=== PATIENT | male | born 1975 | race Caucasian/White ===

== ENCOUNTER 2017-08-04 18:05 | Emergency (ER) | payer MEDICAID ==
[2017-08-04 18:19] VITALS: BP 126/69
[2017-08-04] MEDS ORDERED: Amoxicillin/Clavulanate K 875-125 MG Tab PO ONE (18:51)
[2017-08-04] MEDS ORDERED: traMADol 50 MG Tab PO ONE (18:51)
--- NOTE | 2017-08-04 19:04 | EDM.PDOC ---
ED HPI GENERAL MEDICAL PROBLEM - General Chief Complaint: ENT Problem Stated Complaint: RIGHT EAR INFECTION>?? Time Seen by Provider: 08/04/17 18:38 Source of Information: Reports: Patient History Limitations: Reports: No Limitations - History of Present Illness INITIAL COMMENTS - FREE TEXT/NARRATIVE: Patient presents with right ear pain and fullness as well as muffled hearing. This has been going on for the last 4 days. He has used Tylenol, Ibuprofen and Aleve which haven't helped too much. He has had ear infections in the past and says this feels a little more superficial and is tender just below his ear too. 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 Right Ear Pain Score (Numeric/FACES): 5 - Related Data Allergies Allergy/AdvReac Type Severity Reaction Status Date / Time Sulfa (Sulfonamide Allergy rash, Verified 08/04/17 18:19 Antibiotics) blisters Home Meds: Home Meds Ibuprofen 400 mg PO ASDIRECTED 11/28/16 [History] Past Medical History Musculoskeletal History: Reports: Arthritis, Back Pain, Chronic, Other (See Below) Other Musculoskeletal History: Degenerative arthritis to spine and pelvis Neurological History: Reports: Migraines Endocrine/Metabolic History: Reports: Obesity/BMI 30+ - Infectious Disease History Infectious Disease History: Reports: Chicken Pox, MRSA - Past Surgical History Musculoskeletal Surgical History: Reports: Other (See Below) Other Musculoskeletal Surgeries/Procedures:: Knee cap Left, Right leg infection with dedridment, Neck fusion 2009. Social & Family History - Caffeine Use Caffeine Use: Reports: Coffee ED ROS ENT - Review of Systems Review Of Systems: See Below Constitutional: Denies: Fever, Chills HEENT: Reports: Ear Pain. Denies: Ear Discharge, Throat Pain, Throat Swelling Respiratory: Denies: Shortness of Breath, Cough Cardiovascular: Reports: No Symptoms Endocrine: Reports: No Symptoms GI/Abdominal: Reports: No Symptoms : Reports: No Symptoms Musculoskeletal: Reports: No Symptoms Skin: Reports: No Symptoms. Denies: Cyanosis, Jaundice, Mottled, Pallor, Diaphoresis Neurological: Reports: No Symptoms. Denies: Confusion, Seizure, Syncope, Weakness Psychiatric: Reports: No Symptoms. Denies: Agitation, Anxiety, Confusion ED EXAM, ENT - Physical Exam Exam: See Below Exam Limited By: No Limitations General Appearance: Alert, WD/WN, No Apparent Distress Eye Exam: Bilateral Eye: EOMI, Normal Inspection, PERRL Ears: Auricular Tenderness (just the tragus), Canal Swelling, TM Bulging, TM Dullness, TM Fluid. No: Auricular Ecchymosis, Mastoid Swelling, Mastoid Tenderness, Canal Blood, Canal Discharge, Canal Foreign Body, Canal Material, TM Erythema, TM Blood, TM Perforation, TM Obscured by Cerumen, Cerumen Impaction Nose: Normal Inspection, No Blood Mouth/Throat: Normal Inspection, Normal Gums, Normal Lips, Normal Oropharynx, Normal Teeth Head: Atraumatic, Normocephalic Neck: Normal Inspection, Supple, Non-Tender, Full Range of Motion, Tender Midline Respiratory/Chest: No Respiratory Distress, Lungs Clear, Normal Breath Sounds, No Accessory Muscle Use Cardiovascular: Regular Rate, Rhythm, No Murmur, No Rub Extremities: Normal Inspection, Normal Range of Motion Neurological: Alert, Oriented, Normal Cognition, Normal Gait, No Motor/Sensory Deficits Psychiatric: Normal Affect, Normal Mood Skin: Warm, Dry, Intact, Normal Color, No Rash Course - Vital Signs Last Recorded V/S: Last Vital Signs Temp 97.1 F 08/04/17 18:16 Pulse 92 08/04/17 18:16 Resp 16 08/04/17 18:16 BP 126/69 08/04/17 18:16 Pulse Ox 96 08/04/17 18:16 - Orders/Labs/Meds Orders: Active Orders 24 hr Category Date Time Status Amoxicillin/Clavulanate K [Augmentin 875 MG/125 MG] Med 08/04/17 18:51 Once 1 tab PO ONETIME ONE traMADol [Ultram] Med 08/04/17 18:51 Once 100 mg PO ONETIME ONE Departure - Departure Time of Disposition: 18:53 Disposition: Home, Self-Care 01 Condition: Good Clinical Impression: AOM (acute otitis media) Qualifiers: Otitis media type: suppurative Laterality: right Recurrence: not specified as recurrent Spontaneous tympanic membrane rupture: without spontaneous rupture Qualified Code(s): H66.001 - Acute suppurative otitis media without spontaneous rupture of ear drum, right ear - Discharge Information Referrals: Hetal Rogel PA-C [Primary Care Provider] - Additional Instructions: 1. Drink 8 cups of water daily. 2. Take the medications as directed. 3. Take NSAIDS (either Ibuprofen or Aleve, but not both) primarily for pain then the Tramadol if needed. 4. Followup with your PCP in 3-5 days for recheck if not improving. - My Orders Last 24 Hours: My Active Orders 08/04/17 18:51 Amoxicillin/Clavulanate K [Augmentin 875 MG/125 MG] 1 tab PO ONETIME ONE traMADol [Ultram] 100 mg PO ONETIME ONE - Assessment/Plan Last 24 Hours: My Active Orders 08/04/17 18:51 Amoxicillin/Clavulanate K [Augmentin 875 MG/125 MG] 1 tab PO ONETIME ONE traMADol [Ultram] 100 mg PO ONETIME ONE
== END 2017-08-04 19:05 | disposition home or self-care (01) ==
LOC: KA.ED 18:05
DX: H66.001 Acute suppurative otitis media without spontaneous rupture of ear drum, right ear (principal); Z88.2 Allergy status to sulfonamides
CPT/HCPCS: 99282; A9270; 99283

== ENCOUNTER 2017-08-08 16:54 | Emergency (ER) | payer MEDICAID ==
[2017-08-08 17:05] VITALS: BP 130/73
[2017-08-08] MEDS ORDERED: cefTRIAXone 1 GM Vial IM ONE (17:35)
--- NOTE | 2017-08-08 17:55 | EDM.PDOC ---
ED HPI GENERAL MEDICAL PROBLEM - General Chief Complaint: ENT Problem Stated Complaint: RIGHT EAR STILL BOTHERING HIM Time Seen by Provider: 08/08/17 17:10 Source of Information: Reports: Patient, Family - History of Present Illness INITIAL COMMENTS - FREE TEXT/NARRATIVE: 42-year-old male presents to the emergency room with complaints of right ear pain. He was seen in the emergency room on Thursday and started on Augmentin now for right otitis media. He reports no improvement actually feels his symptoms are worse in the right ear. He denies any fever, chills, cough, sore throat, shortness of breath, or headaches. He denies any drainage in his right ear. He states that he was trying to clean his ear and is unable to insert a cotton tip in the right ear to the swelling. He is not having any difficulties in the left ear. 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: augmentin, tramadol Right Ear Pain Score (Numeric/FACES): 7 - Related Data Allergies Allergy/AdvReac Type Severity Reaction Status Date / Time Sulfa (Sulfonamide Allergy rash, Verified 08/08/17 17:05 Antibiotics) blisters Home Meds: Home Meds Ibuprofen 400 mg PO ASDIRECTED 11/28/16 [History] traMADol HCl [Tramadol HCl] 50 mg PO TID PRN 08/08/17 [History] Past Medical History HEENT History: Reports: Sinusitis Cardiovascular History: Reports: None Respiratory History: Reports: Asthma, COPD Gastrointestinal History: Reports: GERD, Helicobacter Pylori Genitourinary History: Reports: None Musculoskeletal History: Reports: Arthritis, Back Pain, Chronic, Other (See Below) Other Musculoskeletal History: Degenerative arthritis to spine and pelvis Neurological History: Reports: Migraines Psychiatric History: Reports: None Endocrine/Metabolic History: Reports: Obesity/BMI 30+ Hematologic History: Reports: None Dermatologic History: Reports: Other (See Below) Other Dermatologic History: Staph infection and h/o MRSA - Infectious Disease History Infectious Disease History: Reports: Chicken Pox, Helicobacter Pylori, MRSA - Past Surgical History Cardiovascular Surgical History: Reports: None Respiratory Surgical History: Reports: None GI Surgical History: Reports: None Male Surgical History: Reports: None Neurological Surgical History: Reports: C-Spine, Other (See Below) Other Neurological Surgeries/Procedures: triple fusion in c-spine Musculoskeletal Surgical History: Reports: Other (See Below) Other Musculoskeletal Surgeries/Procedures:: Knee cap Left, Right leg infection with dedridment, Neck fusion 2009. Social & Family History - Family History Family Medical History: Noncontributory - Tobacco Use Smoking Status *Q: Current Every Day Smoker Years of Tobacco use: 35 Packs/Tins Daily: 1.5 Used Tobacco, but Quit: No Second Hand Smoke Exposure: Yes - Caffeine Use Caffeine Use: Reports: Coffee, Soda - Recreational Drug Use Recreational Drug Use: No ED ROS ENT - Review of Systems Review Of Systems: ROS reveals no pertinent complaints other than HPI. ED EXAM, ENT - Physical Exam Exam: See Below Exam Limited By: No Limitations General Appearance: Alert, WD/WN, No Apparent Distress Ears: Auricular Tenderness, Canal Swelling (right ear), TM Blood (right) Nose: Normal Inspection Mouth/Throat: Normal Inspection, Normal Oropharynx Head: Atraumatic Neck: Normal Inspection, Supple Respiratory/Chest: No Respiratory Distress Course - Vital Signs Last Recorded V/S: Last Vital Signs Temp 98.3 F 08/08/17 17:01 Pulse 84 08/08/17 17:01 Resp 20 08/08/17 17:01 BP 130/73 08/08/17 17:01 Pulse Ox 91 L 08/08/17 17:01 - Orders/Labs/Meds Orders: Active Orders 24 hr Category Date Time Status Ciprofloxacin/Hydrocortisone [Cipro HC Otic Susp] Med 08/08/17 18:00 Ordered 1 ml EARRT BID Medication Orders Ciprofloxacin/Hydrocortisone (Cipro Hc Otic Susp) 1 ml EARRT BID SAHIL Meds: Medications Generic Name Dose Route Start Last Admin Trade Name Freq PRN Reason Stop Dose Admin Ciprofloxacin/Hydrocortisone 1 ml 08/08/17 18:00 Cipro Hc Otic Susp EARRT BID SAHIL Discontinued Medications Generic Name Dose Route Start Last Admin Trade Name Freq PRN Reason Stop Dose Admin Ceftriaxone Sodium 2 gm 08/08/17 17:35 08/08/17 17:54 Rocephin IM 08/08/17 17:36 2 gm ONETIME ONE Administration Departure - Departure Time of Disposition: 17:54 Disposition: Home, Self-Care 01 Condition: Good Clinical Impression: Otitis externa Qualifiers: Otitis externa type: diffuse Chronicity: acute Laterality: right Qualified Code (s): H60.311 - Diffuse otitis externa, right ear - Discharge Information Instructions: Ear Drops, Adult, Otitis Externa Referrals: Hetal Rogel PA-C [Primary Care Provider] - Forms: ED Department Discharge Additional Instructions: 1. Cipro HC otic 3 drops in the ear 2 times a day for 7 days. 2. Cover with cotton ball to hold in antibiotic steroid. 3. Avoid swimming in pools, hot tubs, and swimming in lakes. 4. Follow-up with your primary care next week if not improved. - My Orders Last 24 Hours: My Active Orders 08/08/17 18:00 Ciprofloxacin/Hydrocortisone [Cipro HC Otic Susp] 1 ml EARRT BID - Assessment/Plan Last 24 Hours: My Active Orders 08/08/17 18:00 Ciprofloxacin/Hydrocortisone [Cipro HC Otic Susp] 1 ml EARRT BID Assessment:: Right otitis externa Right otitis media Plan: 1. Cipro HC otic 3 drops in the ear 2 times a day for 7 days. 2. Cover with cotton ball to hold in antibiotic steroid. 3. Avoid swimming in pools, hot tubs, and swimming in lakes. 4. Follow-up with your primary care next week if not improved.
[2017-08-08] MEDS ORDERED: Ciprofloxacin/Hydrocortisone Otic Susp 10 ML Bottle EARRT SCH (18:00)
== END 2017-08-08 18:10 | disposition home or self-care (01) ==
LOC: KA.ED 16:54
DX: H60.311 Diffuse otitis externa, right ear (principal); J44.9 Chronic obstructive pulmonary disease, unspecified; E66.9 Obesity, unspecified; F17.210 Nicotine dependence, cigarettes, uncomplicated; Z88.2 Allergy status to sulfonamides
CPT/HCPCS: 96372; 99282; 99283; A9270-GY; J0696

== ENCOUNTER 2020-06-23 20:58 | Emergency (ER) | payer MEDICAID, OTHER ==
[2020-06-23] MEDS ORDERED: Sodium Chloride 0.9% 10 ML Syringe FLUSH PRN (21:20)
[2020-06-23] MEDS ORDERED: Aspirin 81 MG Tab.Chew PO ONE (21:43)
[2020-06-23 21:59] LABS: ANION GAP 13.4 mmol/L (5-15); CHLORIDE,CL 104 mmol/L (98-107); SODIUM,NA 142 mmol/L (136-145)
[2020-06-23 22:05] VITALS: BP 128/88; PULSE 95
--- NOTE | 2020-06-23 22:39 | EDM.PDOC ---
ED HPI GENERAL MEDICAL PROBLEM - General Chief Complaint: General Stated Complaint: DIZZY, BLURRY EYES Time Seen by Provider: 06/23/20 21:05 Source of Information: Reports: Patient, Family () History Limitations: Reports: No Limitations - History of Present Illness INITIAL COMMENTS - FREE TEXT/NARRATIVE: 45-year-old male presents to the emergency room with complaints of short and intermittent episodes of chest pain rating to his left chest. He feels this would come and go lasting less than 30 seconds. His chest symptoms started about 7 PM and was resolved by the time he came to the emergency room. He has noticed some shortness of breath during the night. He is experiencing mild nausea. He denies any pain rating down his arms. No pain rating to his chest back or shoulder. He denies any abdominal pain. He denies any diaphoretic episodes. He is followed by [facility]. He has a history of type 2 diabetes high cholesterol and lipids. Fatty liver disease. He has been on diet modification. He does take Lipitor and Prilosec. He is refused to go on diabetes medication. He has a strong family history of heart disease. His mother at age 46 from complications from an angiogram. He is a smoker and has been using tobacco since age 8. He has been trying to quit. He uses a vapor. And has nicotine gum. Onset: Today Onset Date: 06/23/20 Onset Time: 19:00 Duration: Hour(s):, Intermittent Location: Reports: Chest Quality: Reports: Ache, Pressure Severity: Mild Worsens with: Reports: Rest Associated Symptoms: Reports: Chest Pain, Nausea/Vomiting, Shortness of Breath. Denies: Diaphoresis, Fever/Chills, Headaches Middle Chest Pain Score (Numeric/FACES): 6 - Related Data Allergies Allergy/AdvReac Type Severity Reaction Status Date / Time cyclobenzaprine Allergy Nausea and Verified 06/23/20 21:42 [From Flexeril] Vomiting Sulfa (Sulfonamide Allergy rash, Verified 06/23/20 21:42 Antibiotics) blisters Home Meds: Home Meds Omeprazole 20 mg PO BID 01/14/19 [History] atorvaSTATin Calcium [Lipitor] 20 mg PO DAILY 11/17/19 [History] Past Medical History HEENT History: Reports: None Cardiovascular History: Reports: High Cholesterol, Other (See Below) Respiratory History: Reports: Asthma, Bronchitis, Recurrent, COPD, Intubation, Previous Gastrointestinal History: Reports: Gastritis, GERD, Helicobacter Pylori, Other (See Below) Other Gastrointestinal History: Previously treated H. pylori infection in 2007. 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 Genitourinary History: Reports: Other (See Below) Other Genitourinary History: Right renal cyst. Musculoskeletal History: Reports: Arthritis, Back Pain, Chronic, Neck Pain, Chronic, Osteoarthritis, Other (See Below) Other Musculoskeletal History: Bilateral carpal tunnel syndrome. Degenerative arthritis to spine and pelvis. Neurological History: Reports: None Other Neuro History: Peripheral neuropathy prior to cervical fusion as above. 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 Endocrine/Metabolic History: Reports: Diabetes, Type II, Obesity/BMI 30+ Other Endocrine/Metabolic History: AODM currently diet controlled. Hematologic History: Reports: None Immunologic History: Reports: None Oncologic (Cancer) History: Reports: None Dermatologic History: Reports: None Other Dermatologic History: Staph infection and h/o MRSA - Infectious Disease History Infectious Disease History: Reports: Chicken Pox, Helicobacter Pylori, Meningitis, MRSA, Other (See Below) Other Infectious Disease History: Possible meningitis at about age 7 requiring one month hospitalization. - Past Surgical History Head Surgeries/Procedures: Reports: None HEENT Surgical History: Reports: Naso-Sinus Surgery, Other (See Below) Other HEENT Surgeries/Procedures: Severe sinus infection requiring surgery in 2006. [place] teeth extraction 4 at age 34. Cardiovascular Surgical History: Reports: None Respiratory Surgical History: Reports: None GI Surgical History: Reports: None Male Surgical History: Reports: Circumcision, Other (See Below) Other Male Surgeries/Procedures: Circumcision as an . Neurological Surgical History: Reports: C-Spine, Spinal Fusion, Other (See Below) Other Neurological Surgeries/Procedures: Spinal fusion C-spine in about 2009. Musculoskeletal Surgical History: Reports: Other (See Below) Other Musculoskeletal Surgeries/Procedures:: Open debridement of MRSA infection of the left knee as an infant. Oncologic Surgical History: Reports: None Dermatological Surgical History: Reports: None - Past Imaging History Past Imaging History: Reports: CAT Scan (CT of the lumbar spine on 03/13/17. MRI of the lumbar spine on 11/27/16. CT of the abdomen, pelvis, and chest on 10/08/16.) Social & Family History - Family History Family Medical History: No Pertinent Family History - Caffeine Use Caffeine Use: Reports: Coffee - Living Situation & Occupation Living situation: Reports: (), Alone Occupation: Disabled (Secondary to his cervical and lumbar osteoarthritis with disability starting in 2010.) ED ROS GENERAL - Review of Systems Review Of Systems: See Below Constitutional: Reports: No Symptoms HEENT: Reports: No Symptoms, Vision Change Respiratory: Reports: Shortness of Breath Cardiovascular: Reports: Chest Pain, Blood Pressure Problem Endocrine: Reports: High Glucose GI/Abdominal: Reports: Nausea : Reports: No Symptoms Musculoskeletal: Reports: No Symptoms Skin: Reports: No Symptoms Neurological: Reports: No Symptoms Psychiatric: Reports: No Symptoms Hematologic/Lymphatic: Reports: No Symptoms Immunologic: Reports: No Symptoms ED EXAM, GENERAL - Physical Exam Exam: See Below Exam Limited By: No Limitations General Appearance: Alert, No Apparent Distress, Obese Eye Exam: Bilateral Eye: EOMI, PERRL Ears: Hearing Grossly Normal Nose: Normal Inspection Throat/Mouth: Normal Inspection, Normal Oropharynx, Normal Voice, No Airway Compromise Head: Atraumatic, Normocephalic Neck: Normal Inspection, Supple, Non-Tender, Full Range of Motion. No: Carotid Bruit Respiratory/Chest: No Respiratory Distress, Lungs Clear, Normal Breath Sounds, No Accessory Muscle Use, Chest Non-Tender Cardiovascular: Normal Peripheral Pulses, Regular Rate, Rhythm, No Edema, No JVD, No Murmur Peripheral Pulses: 2+: Carotid (L), Carotid (R), Radial (L), Radial (R), Dorsalis Pedis (L), Dorsalis Pedis (R) GI/Abdominal: Soft, Non-Tender, Other (Obese abdomen) Back Exam: Normal Inspection Extremities: Normal Inspection, Normal Range of Motion, Non-Tender, No Pedal Edema Neurological: Alert, Oriented, CN II-XII Intact, No Motor/Sensory Deficits Psychiatric: Normal Affect, Normal Mood Skin Exam: Warm, Dry, Intact, Normal Color, No Rash, Tattoo(s) Lymphatic: No Adenopathy #1 Interpretation EKG Date: 06/23/20 Time: 21:15 Rhythm: NSR Rate (Beats/Min): 90 [place]: Normal P-Wave: Present QRS: Normal ST-T: Normal QT: Normal Comparison: NA - No Prior EKG EKG Interpretation Comments: Normal sinus rhythm Cannot rule out anterior infarct, age undetermined abnormal ECG Course - Vital Signs Last Recorded V/S: Last Vital Signs Temp 97.4 F 06/23/20 21:05 Pulse 95 06/23/20 21:05 Resp 18 06/23/20 21:05 BP 128/88 06/23/20 21:05 Pulse Ox 97 06/23/20 21:05 - Orders/Labs/Meds Orders: Active Orders 24 hr Category Date Time Status EKG Documentation Completion [RC] ASDIRECTED Care 06/23/20 21:18 Active Peripheral IV Care [RC] . DIRECTED Care 06/23/20 21:20 Active CXR [Chest 1V Frontal] [CR] Stat Exams 06/23/20 21:18 Ordered Sodium Chloride 0.9% [Saline Flush] Med 06/23/20 21:20 Active 10 ml FLUSH Q8HR PRN Peripheral IV Insertion Adult [OM.PC] Routine Oth 06/23/20 21:20 Ordered EKG 12 Lead [EK] Stat Ther 06/23/20 21:17 Ordered Medication Orders Sodium Chloride (Sodium Chloride 0.9% 10 Ml Syringe) 10 ml FLUSH Q8HR PRN PRN Reason: keep vein open Last Admin: 06/23/20 21:30 Dose: 10 ml Documented by: ASHLEY Labs: Laboratory Tests 06/23/20 06/23/20 06/23/20 Range/Units 21:30 21:30 21:40 WBC 6.09 (5.00-10.00) 10^3/uL RBC 4.90 (4.50-6.00) 10^6/uL Hgb 14.5 (13.0-17.0) g/dL Hct 42.7 (40.0-52.0) % MCV 87.1 (82.0-92.0) fL MCH 29.6 (27.0-31.0) pg MCHC 34.0 (32.0-36.0) g/dL RDW 12.7 (11.5-14.5) % Plt Count 177 (150-400) 10^3/uL MPV 10.0 (7.4-10.4) fL Immature Gran % (Auto) 0.3 (0.0-5.0) % Neut % (Auto) 58.5 (50.0-70.0) % Lymph % (Auto) 27.3 (20.0-40.0) % [place] % (Auto) 10.2 H (2.0-8.0) % Eos % (Auto) 3.0 (1.0-3.0) % Baso % (Auto) 0.7 (0.0-1.0) % Neut # (Auto) 3.57 (2.50-7.00) 10^3/uL Lymph # (Auto) 1.66 (1.00-4.00) 10^3/uL [place] # (Auto) 0.62 (0.10-0.80) 10^3/uL Eos # (Auto) 0.18 (0.10-0.30) 10^3/uL Baso # (Auto) 0.04 (0.00-0.10) 10^3/uL Immature Gran # (Auto) 0.02 (0.00-0.50) 10^3/uL Sodium 142 (136-145) mmol/L Potassium 4.0 (3.5-5.1) mmol/L Chloride 104 (98-107) mmol/L Carbon Dioxide 28.6 (21.0-32.0) mmol/L Anion Gap 13.4 (5-15) mmol/L BUN 26 H (7-18) mg/dL Creatinine 1.13 (0.51-1.17) mg/dL Est Cr Clr Drug Dosing TNP Estimated GFR (MDRD) > 60 mL/min Glucose 116 (70-140) mg/dL Calcium 8.6 L (8.7-10.3) mg/dL Total Bilirubin 0.5 (0.2-1.0) mg/dL AST 43 H (15-37) U/L ALT 78 H (14-63) U/L Alkaline Phosphatase 73 (46-116) U/L Troponin I High Sens 24.700 (0-76.000) pg/mL Total Protein 7.0 (6.4-8.2) g/dL Albumin 3.65 (3.40-5.00) g/dL Specimen Type Urinvoid Urine Color Yellow (YELLOW) Urine Appearance Clear (CLEAR) Urine pH 6.0 (5.0-9.0) Ur Specific [place] >= 1.030 (1.005-1.030) Urine Protein Negative (NEGATIVE) mg/dL Urine Glucose (UA) Negative (NEGATIVE) mg/dL Urine Ketones Negative (NEGATIVE) mg/dL Urine Occult Blood Negative (NEGATIVE) Urine Nitrite Negative (NEGATIVE) Urine Bilirubin Negative (NEGATIVE) Urine Urobilinogen 0.2 (0.2-1.0) E.U./dL Ur Leukocyte Esterase Negative (NEGATIVE) Urine RBC 0-5 (0-5) /HPF Urine WBC 0-5 (0-5) /HPF Ur Epithelial Cells Few /LPF Urine Bacteria Rare (NONE TO FEW) /HPF Meds: Medications Generic Name Dose Route Start Last Admin Trade Name Freq PRN Reason Stop Dose Admin Sodium Chloride 10 ml 06/23/20 21:20 06/23/20 21:30 Sodium Chloride 0.9% 10 Ml Syringe FLUSH 10 ml Q8HR PRN Administration keep vein open Discontinued Medications Generic Name Dose Route Start Last Admin Trade Name Freq PRN Reason Stop Dose Admin Aspirin 324 mg 06/23/20 21:43 06/23/20 21:46 Aspirin 81 Mg Tab.Chew PO 06/23/20 21:44 324 mg ONETIME ONE Administration - Radiology Interpretation Free Text/Narrative:: Chest x-ray Findings: No cardiomegaly. Normal mediastinal contours. No pneumothorax. No opacity. No pleural effusion. Normal upper abdomen. No fracture. Impression: No acute findings - Re-Assessments/Exams Free Text/Narrative Re-Assessment/Exam: 06/23/20 22:44 Patient's chest pain and pressure had resolved prior to his admission to the ER. He has not had any further recurrences. Departure - Departure Time of Disposition: 22:45 Disposition: Home, Self-Care 01 Condition: Good Clinical Impression: Fatty liver disease, nonalcoholic, Tobacco dependence with current use, Atypical chest pain Diabetes type 2, uncontrolled Qualifiers: Glycemic state: with hyperglycemia Qualified Code(s): E11.65 - Type 2 diabetes mellitus with hyperglycemia Hyperlipidemia Qualifiers: Hyperlipidemia type: unspecified Qualified Code(s): E78.5 - Hyperlipidemia, unspecified - Discharge Information Instructions: Coronary Artery Disease, Male, Type 2 Diabetes Mellitus, Diagnosis, Adult, Dyslipidemia, Fatty Liver Disease, Angina, [id number] Referrals: Hetal Rogel PA-C [Primary Care Provider] - Forms: ED Department Discharge Care Plan Goals: 1. Rest. Avoid all exertion type activities until follow-up with your primary care. 2. Follow-up with Hetal CESPEDES in clinic next week. 3. Recommend stress test. 4. Recommend ophthalmology consult. 5. Return to the emergency room if any chest pain lasts longer than 2 minutes, jaw pain, nausea vomiting, abdominal pain, shoulder pain, back pain occurs. 6. Smoking sensation program. 7. Commend follow-up with dietitian. Sepsis Event Note (ED) - Evaluation Sepsis Screening Result: No Definite Risk - Focused Exam Vital Signs: Vital Signs Temp Pulse Resp BP Pulse Ox 06/23/20 21:05 97.4 F 95 18 128/88 97 - My Orders Last 24 Hours: My Active Orders 06/23/20 21:17 EKG 12 Lead [EK] Stat 06/23/20 21:18 EKG Documentation Completion [RC] ASDIRECTED CXR [Chest 1V Frontal] [CR] Stat 06/23/20 21:20 Peripheral IV Care [RC] . DIRECTED Sodium Chloride 0.9% [Saline Flush] 10 ml FLUSH Q8HR PRN Peripheral IV Insertion Adult [OM.PC] Routine - Assessment/Plan Last 24 Hours: My Active Orders 06/23/20 21:17 EKG 12 Lead [EK] Stat 06/23/20 21:18 EKG Documentation Completion [RC] ASDIRECTED CXR [Chest 1V Frontal] [CR] Stat 06/23/20 21:20 Peripheral IV Care [RC] . DIRECTED Sodium Chloride 0.9% [Saline Flush] 10 ml FLUSH Q8HR PRN Peripheral IV Insertion Adult [OM.PC] Routine Assessment:: 1. Atypical chest pain 2. Type 2 diabetes uncontrolled 3. Hyperlipidemia 4. Fatty liver disease 5. Tobacco dependence Plan: 1. Rest. Avoid all exertion type activities until follow-up with your primary care. 2. Follow-up with Hetal CESPEDES in clinic next week. 3. Recommend stress test. 4. Recommend ophthalmology consult. 5. Return to the emergency room if any chest pain lasts longer than 2 minutes, jaw pain, nausea vomiting, abdominal pain, shoulder pain, back pain occurs. 6. Smoking sensation program. 7. Commend follow-up with dietitian.
--- NOTE | 2020-06-24 08:28 | CR ---
[id number] RAD/RAD Chest PA or AP 1V EXAM: FRONTAL CHEST INDICATION: SOB COMPARISON: None. DISCUSSION: The heart and lungs are normal in appearance. Fusion hardware in the lower cervical spine. IMPRESSION: 1. Negative exam. Dom Duenas MD 06/24/20 0826 Thank you for allowing us to participate in the care of your patient.
== END 2020-06-23 22:45 | disposition home or self-care (01) ==
LOC: KA.ED 20:58
DX: R07.89 Other chest pain (principal); K76.9 Liver disease, unspecified; E78.5 Hyperlipidemia, unspecified; E11.65 Type 2 diabetes mellitus with hyperglycemia; K21.9 Gastro-esophageal reflux disease without esophagitis; E78.00 Pure hypercholesterolemia, unspecified; E66.9 Obesity, unspecified; F17.200 Nicotine dependence, unspecified, uncomplicated; Z72.0 Tobacco use; Z88.6 Allergy status to analgesic agent; Z88.2 Allergy status to sulfonamides; Z68.41 Body mass index [BMI] 40.0-44.9, adult
CPT/HCPCS: 36415; 71045; 80053; 81001; 82947; 84484; 85025; 93005; 99284; 99285-25; A9270-GY